=== PATIENT | male | born 1960 | race Caucasian/White ===

== ENCOUNTER 2019-02-04 08:12 | Day surgery (SDC) | payer BC ==
[~2019-02-04] VITALS: Ht 167.6 cm; Wt 81.0 kg
[~2019-02-04 08:12] MED LIST: CEFUROXIME500 MG PO; LISINOPRIL5 MG PO; NORVASC 10MG10 MG PO; PANTOPRAZOLE40 MG PO; ZOCOR40 MG PO
[2019-02-04] MEDS ORDERED: ASPIRIN E.C. 8181 MG PO (08:42)
[2019-02-04] MEDS ORDERED: LASIX 40MG TABL40 MG PO (08:43)
[2019-02-04] MEDS ORDERED: COZAAR 50MG50 MG/TAB PO (08:44)
[2019-02-04 09:02] LABS: HEMATOCRIT 50.2 % (42.0-52.0); HEMOGLOBIN 16.8 g/dl (13.5-18.0); MEAN CELL VOLUME 91 fl (80.0-100.0); MEAN CORPUSCULAR HEMOGLOBIN 31 pg (27.0-31.0); MEAN CORPUSCULAR HGB CONC 34 g/dl (33.0-37.0); MEAN PLATELET VOLUME 11.2 fl (7.4-10.4); PLATELET COUNT 174 K/mm3 (130-400); RED BLOOD COUNT 5.51 M/mm3 (4.20-5.60); REDCELL DISTRIBUTION WIDTH-CV 12.8 % (11.5-14.5)
[2019-02-04 09:04] VITALS: BP 135/84; PULSE 63
[2019-02-04 09:09] LABS: PROTHROMBIN TIME 11.3 SECONDS (9.7-12.8)
[2019-02-04 09:16] LABS: CALCIUM 9.3 mg/dL (8.4-10.2); CREATININE, serum 0.88 (0.66-1.25); POTASSIUM 4.2 mmol/L (3.4-5.0)
--- NOTE | 2019-02-04 10:17 | NUR ---
Pt has spoken with Dr. 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 HE has already received a call from the office and has rescheduled for next thursday. IV is dc'd with cath intact, dressing applied. pt is ambulatory to exit with sister. no questions or concerns at time of departure.
== END 2019-02-04 10:19 | disposition home or self-care (01) ==
LOC: COL.CAR 08:12
PROVIDERS: Internal Medicine Cardiovascular Disease
DX: R94.39 Abnormal result of other cardiovascular function study (principal); I10 Essential (primary) hypertension; E78.2 Mixed hyperlipidemia; I45.4 Nonspecific intraventricular block; F17.220 Nicotine dependence, chewing tobacco, uncomplicated; Z88.1 Allergy status to other antibiotic agents; Z88.2 Allergy status to sulfonamides; Z79.82 Long term (current) use of aspirin; Z80.9 Family history of malignant neoplasm, unspecified; Z82.49 Family history of ischemic heart disease and other diseases of the circulatory system; Z53.8 Procedure and treatment not carried out for other reasons

== ENCOUNTER 2019-02-09 06:58 | Day surgery (SDC) | payer BC ==
[~2019-02-09] VITALS: Ht 167.6 cm; Wt 81.2 kg
[2019-02-09] VITALS (10 sets, daily range): BP systolic 110–143; BP diastolic 72–82; PULSE 56–65; TEMP 98.4
[~2019-02-09 06:58] MED LIST changes: +ASPIRIN E.C. 8181 MG PO; +COZAAR 50MG50 MG/TAB PO; +LASIX 40MG TABL40 MG PO; -PANTOPRAZOLE40 MG PO; +PROTONIX 40MG T40 MG PO
--- NOTE | 2019-02-09 07:24 | NUR ---
EKG DONE. GUILHERME TREJO NOTIFIED OF EKG ANALYSIS SHOWS ACUTE MA. COMPARED WITH PREVIOUS EKG
[2019-02-09 07:53] LABS: INR 0.9 (0.8-3.0); PROTHROMBIN TIME 10.7 SECONDS (9.7-12.8)
[2019-02-09 07:55] LABS: HEMATOCRIT 51.7 % (42.0-52.0); HEMOGLOBIN 17.4 g/dl (13.5-18.0); MEAN CELL VOLUME 91 fl (80.0-100.0); MEAN CORPUSCULAR HEMOGLOBIN 31 pg (27.0-31.0); MEAN CORPUSCULAR HGB CONC 34 g/dl (33.0-37.0); MEAN PLATELET VOLUME 11.2 fl (7.4-10.4); PARTIAL THROMBOPLASTIN TIME 31.6 SECONDS (26.0-37.0); PLATELET COUNT 173 K/mm3 (130-400); RED BLOOD COUNT 5.68 M/mm3 (4.20-5.60)
[2019-02-09 08:00] LABS: CALCIUM 9.4 mg/dL (8.4-10.2); CREATININE, serum 0.8 (0.66-1.25); POTASSIUM 4.3 mmol/L (3.4-5.0)
--- NOTE | 2019-02-09 08:00 | NUR ---
EKG reported to Kike Stringer APRN.
[2019-02-09] MEDS ORDERED: CLARITIN 1010 MG/TAB PO (08:33)
--- NOTE | 2019-02-09 08:50 | NUR ---
Pt to procedure,report to Nissa Cole.
--- NOTE | 2019-02-09 09:08 | NUR ---
SEE MERGE DOCUMENTATION FOR MEDICATION ADMINISTRATION TIMES AND INTRA/POST PROCEDURE SEDATION ASSESSMENTS. RIGHT RADIAL APPROACH PLANNED, BARBEAU TEST POSITIVE.
[2019-02-09] MEDS ORDERED: LIPITOR 80MG80 MG PO (10:00)
[2019-02-09] MEDS ORDERED: PLAVIX 75MG TAB75 MG PO (10:00)
[2019-02-09] MEDS ORDERED: TOPROL XL 25MG25 MG PO (10:01)
[2019-02-09] MEDS ORDERED: LOVAZA1 GM PO (10:01)
--- NOTE | 2019-02-09 10:24 | NUR ---
Pt returned from procedure,report from Nissa Cole.
--- NOTE | 2019-02-09 13:37 | NUR ---
Discharge instructions given to pt.pt verbalizes understanding.INt removed,catheter tip intact.Dressing to right wrist,c,d,i.Pt escorted out via wheelchair by this nurse.
== END 2019-02-09 13:50 | disposition home or self-care (01) ==
LOC: COL.CAR 06:58
PROVIDERS: Internal Medicine Cardiovascular Disease
DX: I25.10 Atherosclerotic heart disease of native coronary artery without angina pectoris (principal); I10 Essential (primary) hypertension; E78.2 Mixed hyperlipidemia; Z88.1 Allergy status to other antibiotic agents; Z88.2 Allergy status to sulfonamides; Z79.899 Other long term (current) drug therapy; F17.220 Nicotine dependence, chewing tobacco, uncomplicated; Z82.49 Family history of ischemic heart disease and other diseases of the circulatory system; I44.7 Left bundle-branch block, unspecified; R01.1 Cardiac murmur, unspecified
CPT/HCPCS: J1644; J2250; J3010; Q9967